=== PATIENT | female | born 1975 ===

== ENCOUNTER 2019-01-13 07:28 | Emergency (ER) | payer MEDICAID, OTHER ==
[~2019-01-13] VITALS: Ht 162.6 cm; Wt 80.1 kg
[2019-01-13 09:54] VITALS: BP 127/66
== END 2019-01-13 09:57 | disposition home or self-care (01) ==
LOC: ED 09:43
DX: F15.129 Other stimulant abuse with intoxication, unspecified (principal); Z90.49 Acquired absence of other specified parts of digestive tract; F17.210 Nicotine dependence, cigarettes, uncomplicated
CPT/HCPCS: 36415; 80048; 82040; 85025; 87210; 87491; 87591; 87808; 93005; 96372; 99284; J0696; 96375